=== PATIENT | male | born 1960 | race Caucasian/White ===

== ENCOUNTER 2017-08-05 06:24 | Inpatient (IN) | payer BC ==
[~2017-08-05] VITALS: Ht 175.3 cm; Wt 96.3 kg
[~2017-08-05 06:24] MED LIST: APIXABAN 2.5 MG TAB PO SCH; FEXO1TAB46 PO; METOPROLOL SUCC 25MG EXT REL TAB PO SCH
[2017-08-05] MEDS ORDERED: SODIUM CHLORIDE 0.9% 1000ML 500 ML IV STA (06:45)
--- NOTE | 2017-08-05 06:59 | EMERGENCY ROOM VISIT NOTE ---
History Report prepared by Devyn: Danielle Schuster Under the Supervision of: Dr. Kris Macario M.D. First contact with patient: 06:38 Chief Complaint: SYNCOPE (NEAR SYNCOPE) Stated Complaint: FAINTED History of Present Illness The patient is a 57 year old male who presents to the Emergency Room with complaints of an episode of syncope occurring about an hour ago. The patient states that he got up to use the restroom and while standing to wash his hands he lost consciousness. He reports falling to the ground and hitting his head on the bathroom door. Prior to the episode of syncope, the patient felt lightheaded and dizzy. After the episode, the patient was sweating and still felt lightheaded. Presently, the patient feels fine and denies any leg swelling or headache. He denies any heart racing, shortness of breath or chest pain during the episode. The patient reports feeling normal last night besides a sore throat. He states he took airborne last night. He reports drinking a couple liquor based alcoholic drinks last night which is not normal for him. The patient states he felt normal over the past couple days and denies any recent changes to his medications. The patient previously had an episode of syncope occurring in 2011 and was found to have a bleeding ulcer. He denies any recent black or bloody stools. The patient denies any history of heart attack or previous history of atrial fibrillation. The patient has a history of high blood pressure, a heart murmur, and high cholesterol . The patient reports taking his daily medications this morning. Source of History: patient Onset: an hour ago Position: other (generalized) Quality: other (syncope) Timing: other (episode) Associated Symptoms: No headache, No chest pain, No SOB Review of Systems See HPI for pertinent positives & negatives. A total of 10 systems reviewed and were otherwise negative. Past Medical & Surgical Medical Problems: (1) Acute duodenal ulcer (2) Acute myocardial infarction (3) Dyslipidemia (4) Helicobacter pylori gastrointestinal tract infection (5) s/p arthroscopic surgery left knee (6) s/p cardiac cath (7) s/p vagotomy / antrectomy / gastrojejunostomy Social History Smoking Status: Never Smoker Alcohol Use: occasionally Marital Status: Occupation Status: employed Current/Historical Medications Scheduled Amlodipine (Norvasc), 10 MG PO DAILY Atorvastatin (Lipitor), 20 MG PO DAILY Fluticasone Propionate (Nasal) (Allergy Nasal [place] 24 Ho), 2 SPRAYS OMKAR DAILY Hydrochlorothiazide (Hctz), 25 MG PO DAILY Montelukast Sodium (Singulair), 10 MG PO DAILY Pantoprazole (Protonix), 40 MG PO DAILY Allergies Coded Allergies: No Known Allergies (Verified , 08/05/17) Physical Exam Vital Signs Date Time Temp Pulse Resp B/P (MAP) Pulse Ox O2 Delivery O2 Flow Rate FiO2 08/05/17 08:13 78 19 96 08/05/17 08:02 138/109 08/05/17 07:43 76 15 95 08/05/17 07:31 141/92 08/05/17 07:13 86 25 97 08/05/17 07:08 90 117/97 98 08/05/17 07:06 147/102 08/05/17 07:05 92 131/97 147/102 117/97 08/05/17 07:01 137/104 08/05/17 06:54 85 23 99 08/05/17 06:49 91 08/05/17 06:43 167/109 08/05/17 06:28 36.3 85 18 143/98 97 Room Air Physical Exam GENERAL: Patient is in no acute distress. HEENT: No acute trauma, normocephalic atraumatic, mucous membranes moist, no nasal congestion, no scleral icterus. NECK: No stridor, no adenopathy, no meningismus, trachea is midline. LUNGS: Clear to auscultation bilaterally, no wheeze, no rhonchi, breath sounds equal. HEART: Irregular, with a subtle systolic murmur, normal rate. ABDOMEN: Soft, nontender, bowel sounds positive, no hernias, no peritonitis. EXTREMITIES: No cyanosis or edema, full range of motion of all the joints without pain or difficulty, no signs for acute trauma. NEUROLOGIC: Oriented x 3, no acute motor or sensory deficits, no focal weakness. SKIN: No rash, no jaundice, no diaphoresis. Medical Decision & Procedures ER Provider Diagnostic Interpretation: Radiology results as stated below per my review and radiologist interpretation: CHEST ONE VIEW PORTABLE FINDINGS: Atherosclerosis of the aortic arch. Cardiac silhouette normal in size. Scattered calcified granulomas suggested. Mediastinal calcified lymph lymph node may also be present. Lungs and pleural spaces otherwise clear. Degenerative changes of the thoracic spine. Upper abdomen normal. IMPRESSION: 1. No acute cardiopulmonary disease. Electronically signed by: Christos Hernandez M.D. Laboratory Results 08/05/17 07:00 Red Blood Count 5.68, Mean Corpuscular Volume 81.2, Mean Corpuscular Hemoglobin 29.2, Mean Corpuscular Hemoglobin Concent 36.0, Mean Platelet Volume 9.0, Neutrophils (%) (Auto) 68.6, Lymphocytes (%) (Auto) 18.7, Monocytes (%) (Auto) 6.5, Eosinophils (%) (Auto) 5.6, Basophils (%) (Auto) 0.5, Neutrophils # (Auto) 5.38, Lymphocytes # (Auto) 1.47, Monocytes # (Auto) 0.51, Eosinophils # (Auto) 0.44, Basophils # (Auto) 0.04 08/05/17 07:00 Test 08/05/17 07:00 White Blood Count 7.85 K/uL (4.8-10.8) Red Blood Count 5.68 M/uL (4.7-6.1) Hemoglobin 16.6 g/dL (14.0-18.0) Hematocrit 46.1 % (42-52) Mean Corpuscular Volume 81.2 fL (80-100) Mean Corpuscular Hemoglobin 29.2 pg (25-34) Mean Corpuscular Hemoglobin Concent 36.0 g/dl (32-36) Platelet Count 160 K/uL (130-400) Mean Platelet Volume 9.0 fL (7.4-10.4) Neutrophils (%) (Auto) 68.6 % Lymphocytes (%) (Auto) 18.7 % Monocytes (%) (Auto) 6.5 % Eosinophils (%) (Auto) 5.6 % Basophils (%) (Auto) 0.5 % Neutrophils # (Auto) 5.38 K/uL (1.4-6.5) Lymphocytes # (Auto) 1.47 K/uL (1.2-3.4) Monocytes # (Auto) 0.51 K/uL (0.11-0.59) Eosinophils # (Auto) 0.44 K/uL (0-0.5) Basophils # (Auto) 0.04 K/uL (0-0.2) RDW Standard Deviation 37.5 fL (36.4-46.3) RDW Coefficient of Variation 12.7 % (11.5-14.5) Immature Granulocyte % (Auto) 0.1 % Immature Granulocyte # (Auto) 0.01 K/uL (0.00-0.02) Prothrombin Time 10.6 SECONDS (9.0-12.0) Prothromb Time International Ratio 1.0 (0.9-1.1) Activated Partial Thromboplast Time 26.4 SECONDS (21.0-31.0) Partial Thromboplastin Ratio 1.0 Anion Gap 5.0 mmol/L (3-11) Est Creatinine Clear Calc Drug Dose 79.5 ml/min Estimated GFR () 78.6 Estimated GFR (Non- 67.8 BUN/Creatinine Ratio 11.7 (10-20) Calcium Level 9.2 mg/dl (8.5-10.1) Magnesium Level 2.1 mg/dl (1.8-2.4) Total Bilirubin 0.6 mg/dl (0.2-1) Aspartate Amino Transf (AST/SGOT) 25 U/L (15-37) Alanine Aminotransferase (ALT/SGPT) 33 U/L (12-78) Alkaline Phosphatase 86 U/L (45-117) Troponin I < 0.015 ng/ml (0-0.045) Total Protein 8.2 gm/dl (6.4-8.2) Albumin 4.1 gm/dl (3.4-5.0) Globulin 4.1 gm/dl (2.5-4.0) Albumin/Globulin Ratio 1.0 (0.9-2) Thyroid Stimulating Hormone (TSH) 2.240 uIu/ml (0.300-4.500) POC Troponin: 0.12. Laboratory results reviewed by me. Medications Administered Medications (Trade) Dose Ordered Sig/Luis Fernando Route Start Time Stop Time Status Last Admin Dose Admin Sodium Chloride 500 ml @ 999 mls/hr Q31M STAT IV 08/05/17 06:45 08/05/17 07:15 DC 08/05/17 07:09 999 MLS/HR Aspirin (Aspirin Chew) 324 mg NOW STAT PO 08/05/17 07:37 08/05/17 07:38 DC 08/05/17 08:00 324 MG Potassium Chloride (Klor-Con M10) 20 meq NOW STAT PO 08/05/17 07:37 08/05/17 07:38 DC 08/05/17 07:59 20 MEQ Potassium Chloride 10 meq/ Prmx 100 ml @ 100 mls/hr TODAY@0750 ONCE IV 08/05/17 07:50 08/05/17 08:49 08/05/17 08:07 100 MLS/HR ECG Indication: syncope Rate (beats per minute): 85 Rhythm: atrial fibrillation Findings: no acute ischemic change, no ectopy Comparison ECG Date: 04/16/12 Change: A Fib is new. ED Course 0639: The patient was evaluated in room B10. A complete history and physical exam was performed. 0645: Ordered Sodium Chloride 500 ml @ 999 mls/hr IV. 0728: Orthostatic vital signs were positive. 0739: I updated the patient on his test results. The patient's potassium levels are low. 0750: Ordered Potassium Chloride 10 meq/Prmx 100 ml @ 100 mls/hr IV. 0804: Discussed the patient's case with Dr. Aly-Cardiology. He agreed that said the patient should stay in the hospital but states that nothing more emergent needs to be done. 0808: Discussed the patient's case Dr. [place] The patient will be evaluated for further management. 0812: I updated the patient on the treatment plan. He is agreeable to a stay in the hospital. Medical Decision Differential diagnoses include: atrial fibrillation, dysrhythmia, SVT, dehydration, anemia, electrolyte imbalance, OR, orthostasis. There is no leukocytosis or concerning anemia. Potassium was slightly low at around 3, no kidney failure. No hepatitis or coagulopathy. EKG shows A. fib which is rate controlled, no acute ischemia. Cardiac POC troponin is mildly elevated-this could indicate cardiac injury or strain. Of note, the regular laboratory troponin was resulted as normal. Chest film does not show pneumonia or CHF. Orthostatic vital signs were slightly positive. The patient received IV saline. He was given oral and IV potassium. The patient is comfortable and in no distress. Because of the mild troponin elevation, he received oral aspirin. Given his findings, a hospital stay is warranted. I spoke with the patient and case management. The on-call hospitalist was consulted. I did also consult the reset merchandiser on-call and we discussed the case. No additional recommendations were made by the reset merchandiser. Medication Reconcilliation Current Medication List: was personally reviewed by me Blood Pressure Screening Patient's blood pressure: Elevated blood pressure Blood pressure disposition: Referred to PCP (evaluated by hospitalist) Consults Time Called: 801 Consulting Physician: Dr. Aly-Cardiology Returned Call: 08 Discussed the patient's case. He agreed that said the patient should stay in the hospital but states that nothing more emergent needs to be done. Additional Consults: Time Called: 805 Consulted Physician: Dr. [place]ado[place] Returned Call: 08 Additional Comments: Discussed the patient's case. The patient will be evaluated for further management. Impression Primary Impression: Syncope Additional Impressions: New onset a-fib Elevated troponin Scribe Attestation The scribe's documentation has been prepared under my direction and personally reviewed by me in its entirety. I confirm that the note above accurately reflects all work, treatment, procedures, and medical decision making performed by me. Departure Information Dispostion Being Evaluated By Hospitalist Referrals Jorgito Montes Jr,D.O. (PCP) Patient Instructions My [facility] Problem Qualifiers
[2017-08-05 07:11] LABS: BASO % 0.5 %; BASO ABS # 0.04 K/uL (0-0.2); COMPLETE YES; EOS % 5.6 %; HEMATOCRIT 46.1 % (42-52); IG% 0.1 %; LYMPH % 18.7 %; LYMPH ABS # 1.47 K/uL (1.2-3.4); MEAN CELL VOLUME 81.2 fL (80-100); MEAN CORPUSCULAR HEMOGLOBIN 29.2 pg (25-34); MONO % 6.5 %; NEUT % 68.6 %; PLATELET COUNT 160 K/uL (130-400); RED BLOOD COUNT 5.68 M/uL (4.7-6.1); WHITE BLOOD COUNT 7.85 K/uL (4.8-10.8)
[2017-08-05] MEDS ORDERED: HYDR25TA4 PO (07:16)
[2017-08-05] MEDS ORDERED: PANT40TA PO (07:16)
[2017-08-05] MEDS ORDERED: MONT1TAB3 PO (07:17)
[2017-08-05] MEDS ORDERED: FLUT50SP45 NAE (07:17)
[2017-08-05] MEDS ORDERED: AMLO-114 PO (07:17)
[2017-08-05] MEDS ORDERED: ATOR-22 PO (07:17)
[2017-08-05 07:20] LABS: PROTHROMBIN TIME (PATIENT) 10.6 SECONDS (9.0-12.0)
--- NOTE | 2017-08-05 07:21 | DIAGNOSTIC IMAGING REPORT ---
CHEST ONE VIEW PORTABLE CLINICAL HISTORY: 57 years-old Male presenting with EVALUATE ALTERED MENTAL STATUS/WEAKNESS. TECHNIQUE: Portable upright AP view of the chest was obtained. COMPARISON: 01/08/[address] from 10/02/2012. FINDINGS: Atherosclerosis of the aortic arch. Cardiac silhouette normal in size. Scattered calcified granulomas suggested. Mediastinal calcified lymph lymph node may also be present. Lungs and pleural spaces otherwise clear. Degenerative changes of the thoracic spine. Upper abdomen normal. IMPRESSION: 1. No acute cardiopulmonary disease. Electronically signed by: Christos Hernandez M.D. 08/05/2017 7:20 AM Dictated Date/Time: 08/05/2017 7:18 AM
[2017-08-05 07:29] LABS: BUN/CREATININE RATIO 11.7 (10-20); CALCIUM 9.2 mg/dl (8.5-10.1); CREATININE 1.17 mg/dl (0.60-1.40); POTASSIUM 3.1 mmol/L (3.5-5.1)
[2017-08-05] MEDS ORDERED: POTASSIUM CHLORIDE 10 MEQ TABCR PO STA (07:37)
[2017-08-05] MEDS ORDERED: POTASSIUM CHLORIDE 10 MEQ / 100ML WTR IV STA (07:37)
[2017-08-05] MEDS ORDERED: ASPIRIN 81 MG CHEW PO STA (07:37)
[2017-08-05 07:40] LABS: THYROID STIMULATING HORMONE 2.24 uIu/ml (0.300-4.500)
[2017-08-05] MEDS ORDERED: POTASSIUM CHLR 10MEQ / WTR IV ONE (07:50)
[2017-08-05 08:20] VITALS: O2SAT 96; Ht 175.3 cm; Wt 96.3 kg
--- NOTE | 2017-08-05 08:28 | History and Physical ---
History & Physical Date & Time of Service: Aug 05, 2017 at 08:22 Chief Complaint: Fainted Primary Care Physician: Jorgito Montes Jr,D.O. History of Present Illness Source: patient, family This is a 57 yo M with PMHx of Gi bleed secondary to duodenal ulcer with h.pylori infection, HTN, HLD, s/p cardiac cath in 2007 for possible NSTEMI, who presented this morning to the ER after syncopal episode. Pt woke up this morning and walked to the bathroom, at that point felt lightheaded while urinating, but then proceeded to washing his hands. At that point the patient felt more lightheaded and passed out. His was in the bedroom but did not witness the event. He denies hitting his head or sustaining any other major injuries. He woke up within seconds per . Pt reports he had a similar episode with passing out in 1997 when he was diagnosed with a GI bleed secondary to duodenal and jejunal ulcerations, at that time he saw Dr. Donaldson. He denies any abdominal pain, cramping, changes in diet, or changes in stool. He has had a routine colonoscopy within the past [address] Thompson. Last evening had two gin and tonics and reports also had several cups of coffee yesterday. He denies any other complaints at this time. Here in the ER the patient is found to be in new onset Afib which is rate controlled in the 90s. Potassium slightly low at 3.1 and was replaced. Past Medical/Surgical History Medical Problems: (1) Acute duodenal ulcer Permanent Comment: 1987 H pylori positive. Status: Resolved (2) Acute myocardial infarction Permanent Comment: non-STEMI 01/07/08 echo showed normal LV wall motion cardiac cath 01/08/08 showed diffuse nonocclusive disease Status: Resolved (3) Dyslipidemia Status: Chronic (4) Helicobacter pylori gastrointestinal tract infection Permanent Comment: duodenal ulcer 1987 Status: Resolved (5) s/p arthroscopic surgery left knee Permanent Comment: 10/13/10 Status: Resolved (6) s/p cardiac cath Permanent Comment: Dr. Delcid [facility] 01/08/08 left main- no stenosis LAD- multiple lesions, 20-30% circ- 30% prox stenosis RCA- mid 20% stenosis Status: Resolved (7) s/p vagotomy / antrectomy / gastrojejunostomy Permanent Comment: Dr. Ethan Blackwell [facility] 1987 bleeding duodenal ulcer with duodenal stenosis Status: Resolved Family History Patient reports no known family medical history. Social History Smoking Status: Never Smoker Smokeless Tobacco Use: No Alcohol Use: occasionally Drug Use: none Marital Status: Housing status: lives with family Occupational Status: employed Immunizations History of Influenza Vaccine: Yes Influenza Vaccine Date: Apr 24, 2007 History of Tetanus Vaccine?: Yes History of Pneumococcal: No History of Hepatitis B Vaccine: Unknown Multi-Drug Resistant Organisms History of MDRO: No Allergies Coded Allergies: No Known Allergies (Verified , 08/05/17) Home Medications Scheduled Amlodipine (Norvasc), 10 MG PO DAILY Apixaban (Eliquis), 5 MG PO BID Atorvastatin (Lipitor), 20 MG PO DAILY Fluticasone Propionate (Nasal) (Allergy Nasal [place] 24 Ho), 2 SPRAYS OMKAR DAILY Metoprolol Succinate (Metoprolol Succinate ER), 25 MG PO HS Montelukast Sodium (Singulair), 10 MG PO DAILY Pantoprazole (Protonix), 40 MG PO DAILY Review of Systems Constitutional: No fever, No chills, No sweats, No weight loss, No fatigue Eyes: No redness, No diplopia ENT: No sore throat, No trouble swallowing Respiratory: No shortness of breath, No dyspnea on exertion, No dyspnea at rest Cardiovascular: No chest pain, No orthopnea, No edema, No palpitations Abdomen: No pain, No nausea, No vomiting, No diarrhea, No constipation, No GI bleeding Musculoskeletal: No joint pain, No swelling, No calf pain Genitourinary - Male: No hematuria, No dysuria Neurologic: + problem reported (see HPI), No memory loss, No numbness/tingling Endocrine: No fatigue Integumentary: No rash, No itch Physical Exam Vital Signs Date Time Temp Pulse Resp B/P (MAP) Pulse Ox O2 Delivery O2 Flow Rate FiO2 08/05/17 08:13 78 19 96 08/05/17 08:02 138/109 08/05/17 07:43 76 15 95 08/05/17 07:31 141/92 08/05/17 07:13 86 25 97 08/05/17 07:08 90 117/97 98 08/05/17 07:06 147/102 08/05/17 07:05 92 131/97 147/102 117/97 08/05/17 07:01 137/104 08/05/17 06:54 85 23 99 08/05/17 06:49 91 08/05/17 06:43 167/109 08/05/17 06:28 36.3 85 18 143/98 97 Room Air General Appearance: WD/WN, no apparent distress Head: normocephalic, atraumatic Eyes: PERRL ENT: normal ENT inspection, hearing grossly normal, pharynx normal Neck: supple, no JVD Respiratory/Chest: chest non-tender, lungs clear, no respiratory distress, no accessory muscle use Cardiovascular: no JVD, + irregularly irregular (rate controlled) Abdomen/GI: normal bowel sounds, non tender, soft Back: normal inspection Extremities/Musculoskelatal: no calf tenderness, no pedal edema Neurologic/Psych: alert, normal mood/affect, oriented x 3 Skin: normal color, warm/dry Diagnostics Laboratory Results Results Past 24 Hours Test 08/05/17 07:00 Range/Units White Blood Count 7.85 4.8-10.8 K/uL Red Blood Count 5.68 4.7-6.1 M/uL Hemoglobin 16.6 14.0-18.0 g/dL Hematocrit 46.1 42-52 % Mean Corpuscular Volume 81.2 80-100 fL Mean Corpuscular Hemoglobin 29.2 25-34 pg Mean Corpuscular Hemoglobin Concent 36.0 32-36 g/dl Platelet Count 160 130-400 K/uL Mean Platelet Volume 9.0 7.4-10.4 fL Neutrophils (%) (Auto) 68.6 % Lymphocytes (%) (Auto) 18.7 % Monocytes (%) (Auto) 6.5 % Eosinophils (%) (Auto) 5.6 % Basophils (%) (Auto) 0.5 % Neutrophils # (Auto) 5.38 1.4-6.5 K/uL Lymphocytes # (Auto) 1.47 1.2-3.4 K/uL Monocytes # (Auto) 0.51 0.11-0.59 K/uL Eosinophils # (Auto) 0.44 0-0.5 K/uL Basophils # (Auto) 0.04 0-0.2 K/uL RDW Standard Deviation 37.5 36.4-46.3 fL RDW Coefficient of Variation 12.7 11.5-14.5 % Immature Granulocyte % (Auto) 0.1 % Immature Granulocyte # (Auto) 0.01 0.00-0.02 K/uL Prothrombin Time 10.6 9.0-12.0 SECONDS Prothromb Time International Ratio 1.0 0.9-1.1 Activated Partial Thromboplast Time 26.4 21.0-31.0 SECONDS Partial Thromboplastin Ratio 1.0 Sodium Level 135 136-145 mmol/L Potassium Level 3.1 3.5-5.1 mmol/L Chloride Level 100 98-107 mmol/L Carbon Dioxide Level 30 21-32 mmol/L Anion Gap 5.0 3-11 mmol/L Blood Urea Nitrogen 14 7-18 mg/dl Creatinine 1.17 0.60-1.40 mg/dl Est Creatinine Clear Calc Drug Dose 79.5 ml/min Estimated GFR () 78.6 Estimated GFR (Non- 67.8 BUN/Creatinine Ratio 11.7 10-20 Random Glucose 101 70-99 mg/dl Calcium Level 9.2 8.5-10.1 mg/dl Magnesium Level 2.1 1.8-2.4 mg/dl Total Bilirubin 0.6 0.2-1 mg/dl Aspartate Amino Transf (AST/SGOT) 25 15-37 U/L Alanine Aminotransferase (ALT/SGPT) 33 12-78 U/L Alkaline Phosphatase 86 45-117 U/L Troponin I < 0.015 0-0.045 ng/ml Total Protein 8.2 6.4-8.2 gm/dl Albumin 4.1 3.4-5.0 gm/dl Globulin 4.1 2.5-4.0 gm/dl Albumin/Globulin Ratio 1.0 0.9-2 Thyroid Stimulating Hormone (TSH) 2.240 0.300-4.500 uIu/ml Diagnostic Radiology [~ rep ct add3]] CHEST ONE VIEW PORTABLE CLINICAL HISTORY: 57 years-old Male presenting with EVALUATE ALTERED MENTAL STATUS/WEAKNESS. TECHNIQUE: Portable upright AP view of the chest was obtained. COMPARISON: 01/08/[address] from 10/02/2012. FINDINGS: Atherosclerosis of the aortic arch. Cardiac silhouette normal in size. Scattered calcified granulomas suggested. Mediastinal calcified lymph lymph node may also be present. Lungs and pleural spaces otherwise clear. Degenerative changes of the thoracic spine. Upper abdomen normal. IMPRESSION: 1. No acute cardiopulmonary disease. Electronically signed by: Christos Hernandez M.D. 08/05/2017 7:20 AM Dictated Date/Time: 08/05/2017 7:18 AM The status of this report is Signed. EKG Atrial fibrillation with a competing junctional pacemaker Abnormal ECG Vent. rate 85 BPM AK interval * ms QRS duration 82 ms QT/QTc 396/471 ms P-R-T axes * 86 30 Impression Assessment and Plan (1) New onset a-fib (2) Syncope Assessment & Plan: - Admit to tele - New onset atrial fibrillation likely the cause of patients syncopal episode - Checking Echo - Initial point of care troponin was positive, but serum troponin was negative - - will trend x 2 more to rule out. Pt has a hx of NSTEMI in 2007 and had cardiac cath by Dr. Delcid - Pt took morning antihypertensives including hctz 25 mg, norvasc 10 mg. - Cardiology consulted - CHADs vasc score is a 1, received ASA 325 mg in the ER, continue on ASA 81 mg QAM - Will start on metoprolol tartrate 12.5 mg BID for beta blockade - Pt currently asymptomatic and rate controlled - BP stable since presenting to the ER - Administered 1 g IV mag in the ER prior to results but Mag is stable. - Plan was discussed with the patients and daughter at bedside. (3) HTN (hypertension) Assessment & Plan: - For now continue HCTZ and norvasc (4) HLD (hyperlipidemia) Assessment & Plan: - Continue atorvastatin 20 mg daily (5) Gastrointestinal hemorrhage Assessment & Plan: - Continue protonix - Caution with anticoagulation, but likely with new onset afib the benefit outweighs the risk - Resolved (6) Helicobacter pylori gastrointestinal tract infection Assessment & Plan: - Resolved (7) Hypokalemia Assessment & Plan: - Replaced with IV - Trend am PRP Level of Care Telemetry Resuscitation Status FULL RESUSCITATION VTE Prophylaxis VTE Risk Assessment Done? Y/N: Yes Risk Level: Low Given or contraindicated: Unfractionated heparin SQ Note Supervising Note Dr. Chiang I performed a history and physical examination on the patient. I reviewed above note and agree with what is written. During my face to face interaction with the patient, I updated the patient on the plan and answered all of the patient's questions. My exam is below: General Appearance: WD/WN, no apparent distress Neck: supple, no JVD, trachea midline Respiratory/Chest: lungs clear, normal breath sounds, no respiratory distress, no accessory muscle use Cardiovascular: irregularly irregular Abdomen: normal bowel sounds, non tender, soft Extremities: no pedal edema, no calf tenderness, Neurologic/Psychiatric: alert, oriented x 3 Skin: normal color, warm/dry
[2017-08-05] MEDS ORDERED: SODIUM CHLORIDE 0.9% 1000ML 1,000 ML IV SCH (08:46)
[2017-08-05 08:51] VITALS: O2SAT 96
[2017-08-05] MEDS ORDERED: FLUTICASONE PROPIONATE NA SPR 16 GM BTL NAE SCH (09:00)
[2017-08-05] MEDS ORDERED: PANTOprazole SOD 40 MG TAB PO SCH (09:00)
[2017-08-05] MEDS ORDERED: MONTELUKAST SOD 10 MG TAB PO SCH (09:00)
[2017-08-05] MEDS ORDERED: ATORVASTATIN 20 MG TAB PO SCH (09:00)
[2017-08-05] MEDS ORDERED: HYDROCHLOROTHIAZIDE 25 MG TAB PO SCH (09:00)
[2017-08-05] MEDS ORDERED: POLYETHYLENE (MIRALAX) 17 GM PACK PO PRN (09:00)
[2017-08-05] MEDS ORDERED: ACETAMINOPHEN 325 MG TAB PO PRN (09:00)
[2017-08-05] MEDS ORDERED: ONDANSETRON INJ 2 MG/ML 2 ML VIAL IV PRN (09:00)
[2017-08-05] MEDS ORDERED: AMLODIPINE BESYLATE 5 MG TAB PO SCH (09:00)
[2017-08-05 09:25] VITALS: BP 128/89; PULSE 91; TEMP 36.5; O2SAT 95
[2017-08-05] MEDS ORDERED: MAGNESIUM SULFATE 1GM / D5W 1 GM in PREMIXED IN D5W 100 ML IV ONE (10:00)
[2017-08-05] MEDS ORDERED: METOPROLOL TARTRATE 25 MG TAB PO SCH (10:45)
--- NOTE | 2017-08-05 12:02 | ECHOCARDIOGRAM REPORT ---
*NOTICE TO RECEIVING REPUBLICAN AGENCY This information is strictly Confidential and protected under [place] law. [place] law prohibits you from making any further disclosure of this information unless further disclosure is expressly permitted by the written consent of the person to whom it pertains or is authorized by law. A general authorization for the release of medical or other information is not sufficient for this purpose. Hospital accepts no responsibility if the information is made available to any other person, INCLUDING THE PATIENT. Interpretation Summary * Name: MANUEL GUTIERREZ Study Date: 08/05/2017 10:08 AM BP: 128/89 mmHg * Patient Location: C.2E\S\E212\S\1 HR: 91 * : 1960 (M/d/yyyy) Gender: Male Height: 69 in * Age: 57 yrs Ethnicity: CA Weight: 221 lb * Ordering Physician: Nyla Thomas * Referring Physician: Self, Referred * Performed By: Martha Weber RCS * * Reason For Study: A-FIB * BSA: 2.2 m2 * -- Conclusions -- * The left ventricle is normal in size. * There is mild concentric left ventricular hypertrophy. * Left ventricular systolic function is normal. * LVEF 65% * The left ventricular wall motion is normal. * The right ventricle is normal in size and function. * Calcification along the coaptation of the RCC and LCC of the AoV. A functional bicuspid AoV can not be excluded * No AR * The left atrium is moderately dilated. Procedure Details * A complete two-dimensional transthoracic echocardiogram was performed (2D, M-mode, Doppler and color flow Doppler). Left Ventricle * The left ventricle is normal in size. * There is mild concentric left ventricular hypertrophy. * Left ventricular systolic function is normal. * LVEF 65% * The left ventricular wall motion is normal. Right Ventricle * The right ventricle is normal in size and function. Atria * The left atrium is moderately dilated. * Right atrial size is normal. Mitral Valve * The mitral valve leaflets appear thickened, but open well. * There is no mitral regurgitation noted. Tricuspid Valve * The tricuspid valve is not well visualized, but is grossly normal. * There is trace tricuspid regurgitation. Aortic Valve * Calcification along the coaptation of the RCC and LCC of the AoV. A functional bicuspid AoV can not be excluded No AR Pulmonic Valve * The pulmonic valve is not well seen, but is grossly normal. * Mild pulmonic valvular regurgitation. Great Vessels * The aortic root is normal size. Pericardium/Pleural * There is no pericardial effusion. Great Vessels * IVC not well seen MMode 2D Measurements and Calculations IVSd 1.7 cm IVSs 1.6 cm LVIDd 4.7 cm LVIDs 3.5 cm LVPWd 1.2 cm LVPWs 1.7 cm IVS/LVPW 1.4 FS 25.5 % EDV(Teich) 102.3 ml ESV(Teich) 50.9 ml EF(Teich) 50.3 % EDV(cubed) 103.7 ml ESV(cubed) 42.9 ml EF(cubed) 58.7 % % IVS thick -4.51 % % LVPW thick 42.0 % LV mass(C)d 280.8 grams LV mass(C)dI 130.3 grams/m\S\2 LV mass(C)s 231.5 grams LV mass(C)sI 107.4 grams/m\S\2 SV(Teich) 51.4 ml SI(Teich) 23.9 ml/m\S\2 SV(cubed) 60.8 ml SI(cubed) 28.2 ml/m\S\2 Ao root diam 3.4 cm Ao root area 8.9 cm\S\2 LA dimension 4.7 cm LA/Ao 1.4 LVOT diam 2.0 cm LVOT area 3.2 cm\S\2 Doppler Measurements and Calculations MV E max walker 79.8 cm/sec MV P1/2t max walker 98.4 cm/sec MV P1/2t 58.5 msec MVA(P1/2t) 3.8 cm\S\2 MV dec slope 492.5 cm/sec\S\2 MV dec time 0.18 sec Ao V2 max 143.2 cm/sec Ao max PG 8.2 mmHg Ao max PG (full) 4.5 mmHg SOLEDAD(V,A) 2.1 cm\S\2 SOLEDAD(V,D) 2.1 cm\S\2 AI max walker 280.4 cm/sec AI max PG 31.4 mmHg AI dec slope 131.0 cm/sec\S\2 AI P1/2t 627.1 msec LV V1 max PG 3.7 mmHg LV V1 max 96.0 cm/sec PA V2 max 78.5 cm/sec PA max PG 2.5 mmHg PI max walker 184.6 cm/sec PI max PG 13.6 mmHg PI dec slope 143.4 cm/sec\S\2 PI P1/2t 377.2 msec
[2017-08-05] MEDS ORDERED: APIXABAN 2.5 MG TAB PO SCH (12:15)
[2017-08-05 12:27] VITALS: BP 124/94; PULSE 82; TEMP 36.4; O2SAT 98
[2017-08-05] MEDS ORDERED: HEPARIN SOD 5000 UNIT/0.5 ML CARP SQ SCH (14:00)
--- NOTE | 2017-08-05 14:34 | CARDIOLOGY CONSULTATION ---
DATE OF CONSULTATION: 08/05/2017 REQUESTING: Narciso Chiang MD MINE TECHNICIAN: Maximiliano Aly DO, [facility] Cardiology. REASON FOR CONSULTATION: Syncope, atrial fibrillation of unknown duration. It was a pleasure to see Shailesh today in consultation with regards to his new onset of atrial fibrillation of unknown duration and a syncopal episode. He notes he saw his family doctor who is Dr. Montes within the last couple weeks, at that visit, no one mentioned that his heart rate was irregular. 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 He notes yesterday he had a fair amount of coffee, he also had some alcoholic beverages last evening and he notes he did not drink as much water as usual. 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 He walked to the bathroom, he was urinating, he started to get lightheaded and dizzy. He then went to the sink to wash his hands and the next thing he knows he had a syncopal episode. He describes the dizziness as wooziness in the head. There was no vertigo. He had no palpitations associated with it. He had brief loss of consciousness which lasted a couple of seconds, when he came to, he remembered all the events that occurred prior to passing out. When he awoke, there was no loss of bowel or bladder function and he was able to carry on a conversation. His who was with him notes that the urine in the toilet was very concentrated. He has never had a previous history of syncope nor does he have a history of atrial fibrillation. He denies any lower extremity edema, symptoms of claudication, bleeding, bruising, dark stools, black stools, fevers, chills, sweats, cough, productive sputum. His appetite is stable. He is trying to lose weight. The rest of review of systems otherwise negative. PAST MEDICAL HISTORY: 1. New onset atrial fibrillation of undetermined duration. 2. Syncope, likely related to orthostatic hypotension and dehydration. 3. History of duodenal ulcer in 1987. 4. Hyperlipidemia. 5. Cardiac catheterization - December 2007 with 20-30% LAD lesion, 30% proximal circumflex lesion and a 20% mid RCA lesion with mild nonobstructive coronary artery disease. 6. Arthroscopic surgery of his left knee - October 2010. 7. Vagotomy, antrectomy and gastrojejunostomy in 1987. 8. Seasonal allergies. 9. Hypertension. FAMILY HISTORY: Positive for pulmonary fibrosis including 2 siblings. His dad had a heart attack in his mid to late 50s. SOCIAL HISTORY: Lifetime nonsmoker, occasionally drinks alcohol. He is . 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 ALLERGIES: No known drug allergies. PHYSICAL EXAMINATION: GENERAL: He is awake, alert, oriented x3. He is in no acute distress. He is a well-appearing male who looks younger than his stated age. VITAL SIGNS: His heart rate is 91. His respirations are 16, his blood pressure 128/89. Sats 95% on room air. HEENT: AND NECK: 2+ carotid upstrokes. No evidence of carotid bruits. Jugular venous pressure appeared normal. Sclerae is anicteric. Hearing is normal. LUNGS: Clear to auscultation bilaterally. No rales, rhonchi or wheezing. HEART: Irregular rate and rhythm. No appreciable murmurs, rubs or gallops. ABDOMEN: Soft, nontender, nondistended, positive bowel sounds. EXTREMITIES: No clubbing, cyanosis or edema. PSYCHIATRIC: Affect appeared appropriate. NEUROLOGIC: He is awake, alert and oriented x3. DIAGNOSTIC STUDIES: Chest x-ray is normal. His point of care troponin was described as abnormal in the ER, his lab troponin is normal. His TSH is 2.24. Sodium 135, potassium 3.1, BUN 14, creatinine 1.17. His coags are normal. His hemoglobin 16.6 with a platelet count of 160. EKG today - atrial fibrillation with a controlled ventricular response at 85 beats per minute, no acute ST-T changes. IMPRESSION: 1. Syncopal episode secondary to orthostatic hypotension. 2. Hyponatremia and hypokalemia secondary to hydrochlorothiazide. 3. History of hypertension. 4. New onset atrial fibrillation of undetermined duration, which appears to be asymptomatic with a CHADS2-VASc score including hypertension and given his known coronary disease a score of 2. As I discussed with Shailesh and his family in detail, his echocardiogram reveals normal biventricular size and function, there were no regional wall motion abnormalities, his ejection fraction is 65%, he does have moderate left atrial enlargement, likely secondary to longstanding hypertension. His syncopal episode sounds like it is all related to orthostatic symptoms. He had decreased oral intake yesterday, consumed alcohol last night and significant amount of caffeine, which are all diuretics. I made the following recommendations: 1. Stop his hydrochlorothiazide, which will improve his sodium and his potassium. 2. Replete his potassium. 3. Add Toprol-XL 25 mg at bedtime to control his heart rate. 4. Add apixaban 5 mg b.i.d. with close monitoring for any GI bleeding given his history and he should remain on pantoprazole. As I discussed with him if he is still in atrial fibrillation after 3 weeks of anticoagulation, we can consider cardioversion at that point to try to restore sinus rhythm. It appears he has not had any symptoms of atrial fibrillation over the last couple of weeks. 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 From my standpoint, he can be discharged home. All this was discussed in the family. Will arrange for a nurse visit in the office this week to check his heart rate and his blood pressure. Thank you for allowing us to participate in his care. ISHMAEL
[2017-08-05] MEDS ORDERED: TPRSR25 PO (14:38)
[2017-08-05] MEDS ORDERED: APIX1TAB3 PO (14:38)
--- NOTE | 2017-08-05 14:40 | Discharge Instructions ---
Discharge Instructions Date of Service Aug 05, 2017. Admission Reason for Admission: New Onset Afib Discharge Discharge Diagnosis / Problem: New onset A. Fib Discharge Goals Goal(s): Decrease discomfort, Improve function Activity Recommendations Activity Limitations: resume your previous activity . Instructions / Follow-Up Instructions / Follow-Up Followup with PCP in 1-2 weeks Followup with cardiology within 1 month. Cardio will call you tomorrow. Please olive picker medicine tomorrow at pharmacy. Current Hospital Diet Patient's current hospital diet: AHA Diet (Heart Healthy) Discharge Diet Recommended Diet: AHA Diet (Heart Healthy) Pending Studies Studies pending at discharge: no Medical Emergencies . Who to Call and When: Medical Emergencies: If at any time you feel your situation is an emergency, please call 911 immediately. . Non-Emergent Contact Non-Emergency issues call your: Primary Care Provider Call Non-Emergent contact if: you have any medication questions . . "Provider Documentation" section prepared by Narciso Chiang. . VTE Core Measure Inpt VTE Proph given/why not?: Unfractionated heparin SQ
[2017-08-05 15:25] VITALS: BP 124/94; PULSE 82; TEMP 36.4; O2SAT 98
[2017-08-05] MEDS ORDERED: METOPROLOL SUCC 25MG EXT REL TAB PO SCH (21:00)
[2017-08-06] MEDS ORDERED: ASPIRIN 81 MG ECTAB PO SCH (09:00)
--- NOTE | 2017-08-14 08:55 | Discharge Summary ---
Discharge Summary Date of Service 2016 Discharge Summary Admission Date: Aug 05, 2017 at 08:51 Discharge Date: Aug 05, 2017 Discharge Disposition: Home Principal Diagnosis: New onset A. Fib Immunizations: Have You Had Influenza Vaccine: Yes Influenza Vaccine Date: Apr 24, 2007 History of Tetanus Vaccine?: Yes History of Pneumococcal: No History of Hepatitis B Vaccine: Unknown Consultations: DATE OF CONSULTATION: 08/05/2017 REQUESTING: Narciso Chiang MD HARDWOOD FALLER: Maximiliano Aly DO, [facility] Cardiology. REASON FOR CONSULTATION: Syncope, atrial fibrillation of unknown duration. It was a pleasure to see Shailesh today in consultation with regards to his new onset of atrial fibrillation of unknown duration and a syncopal episode. He notes he saw his family doctor who is Dr. Montes within the last couple weeks, at that visit, no one mentioned that his heart rate was irregular. 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 He notes yesterday he had a fair amount of coffee, he also had some alcoholic beverages last evening and he notes he did not drink as much water as usual. 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 He walked to the bathroom, he was urinating, he started to get lightheaded and dizzy. He then went to the sink to wash his hands and the next thing he knows he had a syncopal episode. He describes the dizziness as wooziness in the head. There was no vertigo. He had no palpitations associated with it. He had brief loss of consciousness which lasted a couple of seconds, when he came to, he remembered all the events that occurred prior to passing out. When he awoke, there was no loss of bowel or bladder function and he was able to carry on a conversation. His who was with him notes that the urine in the toilet was very concentrated. He has never had a previous history of syncope nor does he have a history of atrial fibrillation. He denies any lower extremity edema, symptoms of claudication, bleeding, bruising, dark stools, black stools, fevers, chills, sweats, cough, productive sputum. His appetite is stable. He is trying to lose weight. The rest of review of systems otherwise negative. PAST MEDICAL HISTORY: 1. New onset atrial fibrillation of undetermined duration. 2. Syncope, likely related to orthostatic hypotension and dehydration. 3. History of duodenal ulcer in 1987. 4. Hyperlipidemia. 5. Cardiac catheterization - December 2007 with 20-30% LAD lesion, 30% proximal circumflex lesion and a 20% mid RCA lesion with mild nonobstructive coronary artery disease. 6. Arthroscopic surgery of his left knee - October 2010. 7. Vagotomy, antrectomy and gastrojejunostomy in 1987. 8. Seasonal allergies. 9. Hypertension. FAMILY HISTORY: Positive for pulmonary fibrosis including 2 siblings. His dad had a heart attack in his mid to late 50s. SOCIAL HISTORY: Lifetime nonsmoker, occasionally drinks alcohol. He is . 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 ALLERGIES: No known drug allergies. PHYSICAL EXAMINATION: GENERAL: He is awake, alert, oriented x3. He is in no acute distress. He is a well-appearing male who looks younger than his stated age. VITAL SIGNS: His heart rate is 91. His respirations are 16, his blood pressure 128/89. Sats 95% on room air. HEENT: AND NECK: 2+ carotid upstrokes. No evidence of carotid bruits. Jugular venous pressure appeared normal. Sclerae is anicteric. Hearing is normal. LUNGS: Clear to auscultation bilaterally. No rales, rhonchi or wheezing. HEART: Irregular rate and rhythm. No appreciable murmurs, rubs or gallops. ABDOMEN: Soft, nontender, nondistended, positive bowel sounds. EXTREMITIES: No clubbing, cyanosis or edema. PSYCHIATRIC: Affect appeared appropriate. NEUROLOGIC: He is awake, alert and oriented x3. DIAGNOSTIC STUDIES: Chest x-ray is normal. His point of care troponin was described as abnormal in the ER, his lab troponin is normal. His TSH is 2.24. Sodium 135, potassium 3.1, BUN 14, creatinine 1.17. His coags are normal. His hemoglobin 16.6 with a platelet count of 160. EKG today - atrial fibrillation with a controlled ventricular response at 85 beats per minute, no acute ST-T changes. IMPRESSION: 1. Syncopal episode secondary to orthostatic hypotension. 2. Hyponatremia and hypokalemia secondary to hydrochlorothiazide. 3. History of hypertension. 4. New onset atrial fibrillation of undetermined duration, which appears to be asymptomatic with a CHADS2-VASc score including hypertension and given his known coronary disease a score of 2. As I discussed with Shailesh and his family in detail, his echocardiogram reveals normal biventricular size and function, there were no regional wall motion abnormalities, his ejection fraction is 65%, he does have moderate left atrial enlargement, likely secondary to longstanding hypertension. His syncopal episode sounds like it is all related to orthostatic symptoms. He had decreased oral intake yesterday, consumed alcohol last night and significant amount of caffeine, which are all diuretics. I made the following recommendations: 1. Stop his hydrochlorothiazide, which will improve his sodium and his potassium. 2. Replete his potassium. 3. Add Toprol-XL 25 mg at bedtime to control his heart rate. 4. Add apixaban 5 mg b.i.d. with close monitoring for any GI bleeding given his history and he should remain on pantoprazole. As I discussed with him if he is still in atrial fibrillation after 3 weeks of anticoagulation, we can consider cardioversion at that point to try to restore sinus rhythm. It appears he has not had any symptoms of atrial fibrillation over the last couple of weeks. 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 From my standpoint, he can be discharged home. All this was discussed in the family. Will arrange for a nurse visit in the office this week to check his heart rate and his blood pressure. Thank you for allowing us to participate in his care. Medication Reconciliation New Medications: Apixaban (Eliquis) 5 Mg Tab 5 MG PO BID for 30 Days, #60 TAB Metoprolol Succinate (Metoprolol Succinate ER) 25 Mg Tabcr 25 MG PO HS for 30 Days, #30 TAB 1 Refill Continued Medications: Amlodipine (Norvasc) 10 Mg Tab 10 MG PO DAILY Atorvastatin (Lipitor) 20 Mg Tab 20 MG PO DAILY Fluticasone Propionate (Nasal) (Allergy Nasal [place] 24 Ho) 50 Mcg/Act Spr 2 SPRAYS OMKAR DAILY Montelukast Sodium (Singulair) 10 Mg Tab 10 MG PO DAILY Pantoprazole (Protonix) 40 Mg Tab 40 MG PO DAILY Discontinued Medications: Hydrochlorothiazide (Hctz) 25 Mg Tab 25 MG PO DAILY Discharge Exam Review of Systems: Constitutional: No chills, No sweats Respiratory: No cough, No sputum Cardiovascular: No chest pain, No orthopnea Abdomen: No pain, No nausea Neurologic: No memory loss, No paralysis Psychiatric: No depression symptoms Hematologic / Lymphatic: No abnormal bleeding/bruising, No clotting problems Integumentary: No rash Physical Exam: General Appearance: WD/WN, no apparent distress Eyes: normal inspection ENT: normal ENT inspection Neck: supple, no adenopathy Respiratory/Chest: chest non-tender, lungs clear, normal breath sounds Cardiovascular: no murmur, normal peripheral pulses, + abnormal peripheral pulses Abdomen / GI: normal bowel sounds, non tender, soft Neurologic/Psychiatric: alert, oriented x 3 Skin: normal color Lymphatic: no adenopathy Hospital Course (1) New onset a-fib (2) Syncope (3) HTN (hypertension) (4) HLD (hyperlipidemia) (5) Gastrointestinal hemorrhage (6) Helicobacter pylori gastrointestinal tract infection (7) Hypokalemia HPI This is a 57 yo M with PMHx of Gi bleed secondary to duodenal ulcer with h.pylori infection, HTN, HLD, s/p cardiac cath in 2007 for possible NSTEMI, who presented this morning to the ER after syncopal episode. Pt woke up this morning and walked to the bathroom, at that point felt lightheaded while urinating, but then proceeded to washing his hands. At that point the patient felt more lightheaded and passed out. His was in the bedroom but did not witness the event. He denies hitting his head or sustaining any other major injuries. He woke up within seconds per . Pt reports he had a similar episode with passing out in 1997 when he was diagnosed with a GI bleed secondary to duodenal and jejunal ulcerations, at that time he saw Dr. Donaldson. He denies any abdominal pain, cramping, changes in diet, or changes in stool. He has had a routine colonoscopy within the past [address] Thompson. Last evening had two gin and tonics and reports also had several cups of coffee yesterday. He denies any other complaints at this time. Here in the ER the patient is found to be in new onset Afib which is rate controlled in the 90s. Potassium slightly low at 3.1 and was replaced. Hospital Course (2) Syncope Patient was admitted with New onset atrial fibrillation likely the cause of patients syncopal episode - Checking Echo Troponin was negative x 3 - Pt took morning antihypertensives including hctz 25 mg, norvasc 10 mg. -Cardio consulted, recommended tank terminal gauger anticoagulation. Patient will be started on Eliquis. -Discussed risks and benefits. - Was also started on metoprolol tartrate 12.5 mg BID for beta blockade - Pt was discharged as he was asymptomatic and rate controlled - BP stable since presenting to the ER HTN (hypertension) Assessment & Plan: - For now continue metoprolol and norvasc HLD (hyperlipidemia) Assessment & Plan: - Continue atorvastatin 20 mg daily Gastrointestinal hemorrhage Assessment & Plan: - Continue protonix - Caution with anticoagulation, but likely with new onset afib the benefit outweighs the risk - Resolved Helicobacter pylori gastrointestinal tract infection Assessment & Plan: - Resolved Hypokalemia Assessment & Plan: - resolved after being replaced. stopped HCTZ due to electrolyte imbalances as recommended by cardio Total Time Spent: Greater than 30 minutes This includes examination of the patient, discharge planning, medication reconciliation, and communication with other providers. Discharge Instructions Please refer to the electronic Patient Visit Report (Discharge Instructions) for additional information. Follow-Up F/U as per discharge instructions
== END 2017-08-05 15:45 | disposition home or self-care (01) | DRG 309 ==
LOC: C.EDB 06:25 → C.2E 08:51 → ENRESERV 09:01
PROVIDERS: ADMIT Internal Medicine Sports Medicine; ATTEND Internal Medicine Sports Medicine
DX: I48.91 Unspecified atrial fibrillation (principal); E87.1 Hypo-osmolality and hyponatremia; E87.6 Hypokalemia; R74.8 Abnormal levels of other serum enzymes; E86.0 Dehydration; I95.1 Orthostatic hypotension; I25.10 Atherosclerotic heart disease of native coronary artery without angina pectoris; I10 Essential (primary) hypertension; E78.5 Hyperlipidemia, unspecified; I25.2 Old myocardial infarction; Z87.19 Personal history of other diseases of the digestive system; Z79.899 Other long term (current) drug therapy

== ENCOUNTER → 2017-09-06 | Day surgery (SDC) | payer OTHER ==
[~2017-09-06] VITALS: Ht 175.3 cm; Wt 97.6 kg
[2017-09-06] VITALS (7 sets, daily range): BP systolic 91–133; BP diastolic 64–89; PULSE 48–83; TEMP 36.3; O2SAT 97–98; Ht 175.3 cm; Wt 97.6 kg
[~2017-09-06] MED LIST changes: +AMLO-114 PO; +APIX1TAB3 PO; -APIXABAN 2.5 MG TAB PO SCH; +ATOR-22 PO; -FEXO1TAB46 PO; +FLUT50SP45 NAE; +LIDOCAINE HCL 2% 2 ML VIAL (20MG/ML) ONE; -METOPROLOL SUCC 25MG EXT REL TAB PO SCH; +MONT1TAB3 PO; +MULT-599; +PANT40TA PO; +PROPOFOL IV EMULSION 10 MG/ML 20 ML VIAL IV ONE; +TPRSR25 PO
--- NOTE | 2017-09-06 07:48 | History & Physical Bridge Note ---
H&P Re-Evaluation Bridge Note: I have examined the patient, reviewed the History & Physical and in the interval since the performance of the History & Physical I have noted the following changes of clinical significance: No changes noted
--- NOTE | 2017-09-06 07:49 | Cardiology Procedure Brief Nt ---
Preliminary Cardiology Note Procedure Date Sep 06, 2017. Pre-Procedure Diagnosis Afib Post-Procedure Diagnosis Afib Procedure(s) Performed DC cardioversion sync mode 200 joules biphasic back to Sinus Bradycardia Bridge Worker Jermain Grades 1 Thru 6 Visiting Teacher(s) none Estimated Blood Loss none Medication(s) Propofol and lidocaine provided by anesthesia dept Preliminary Findings ! single shock back to SB Recommendations none Specimens none Complication(s) None Disposition
--- NOTE | 2017-09-06 07:52 | Discharge Instructions ---
Discharge Instructions Procedure Procedure Date: Sep 06, 2017. Reason for Visit: Afib Discharge Discharge Date: Sep 06, 2017. Discharge Diagnosis: Afib Last Recorded Wt (Kilograms): 97.59 Medications Stopped Medication(s): Decrease Toprol to 12.5 mg daily Anesthesia Post Anesthesia Instructions: If you have had IV Sedation: * Do not drive today. * Do not make important decisions or sign legal documents today. * Call for: 3. Excessive bleeding. 4. Persistent nausea and vomiting. 5. Medication intolerance (nausea, vomiting or rash). * For nausea and vomiting use only clear liquids such as: tea, soda, bouillon until nausea subsides, then gradually increase diet as tolerated. * If you have any concerns or questions, call your surgeon's office. If physician is unavailable and it is an emergency, call 911 or go to the nearest emergency room. Instructions Activity Recommendations: limitations Recommended Home Diet: no limitations Allergies: Coded Allergies: No Known Allergies (Verified , 08/05/17) Follow Up ACTIVITY RECOMMENDATIONS: * May resume driving tomorrow. SPECIAL CARE: * May apply burn ointment for skin irritation. * Please contact physician for any lightheadedness, dizziness or palpitations. * You have any unanswered questions or concerns. Your Doctors Instructions noted above were prepared by provider Maximiliano Aly. Patient Signature Section: Patient Instructions Signature Page Shailesh Bryant Patient (or Guardian) Signature/Date: I have read and understand the instructions given to me by my caregivers. Caregiver/RN/Doctor Signature/Date: The above-named patient and/or guardian has received patient instructions on this date. + Original Patient Signature Page (only) stays with chart. Please make copy for patient.
--- NOTE | 2017-09-06 08:09 | Anesthesiology Progress Note ---
Anesthesia Post Op Note Date & Time Sep 06, 2017 at 08:09 Vital Signs Pain Intensity: 0 Vital Signs Past 12 Hours Date Time Temp Pulse Resp B/P (MAP) Pulse Ox O2 Delivery O2 Flow Rate FiO2 09/06/17 07:54 56 16 94/61 (72) 98 Room Air 09/06/17 07:44 48 16 91/64 (73) 98 Room Air 09/06/17 07:44 48 16 91/64 98 Nasal Cannula 4 09/06/17 07:40 48 16 95/66 98 Nasal Cannula 4 09/06/17 07:38 50 16 133/89 98 Nasal Cannula 4 09/06/17 07:35 75 16 133/89 98 Nasal Cannula 4 09/06/17 07:09 36.3 83 16 115/89 (98) 98 Room Air Notes Mental Status: alert / awake / arousable, participated in evaluation Pt Amnestic to Procedure: Yes Nausea / Vomiting: adequately controlled Pain: adequately controlled Airway Patency, RR, SpO2: stable & adequate BP & HR: stable & adequate Hydration State: stable & adequate Anesthetic Complications: no major complications apparent
--- NOTE | 2017-09-06 08:24 | CARDIOVERSION ---
DATE OF OPERATION: 09/06/2017 CARDIOVERSION INDICATION FOR THE PROCEDURE: Atrial fibrillation. DESCRIPTION OF PROCEDURE: The patient was brought to the cardiac catheterization laboratory. He has been on apixaban 5 mg twice a day for greater than 3 weeks. After risks and benefits of the procedure were discussed in detail, the patient was sedated by the anesthesia department with lidocaine and propofol. Once adequately sedated, he was shocked once with a 200 joule biphasic shock in a sync mode with yarsani of sinus bradycardia. At the end of the procedure, he was answering all questions appropriately and moving his extremities. We will reduce his home Toprol dose from 25 mg a day to 12.5 mg a day and he will remain on apixaban. I attest to the content of the Intraoperative Record and any orders documented therein. Any exceptions are noted below. MTDD
== END | disposition home or self-care (01) ==
LOC: C.CATH 06:31
PROVIDERS: ATTEND Internal Medicine Cardiovascular Disease
DX: I48.91 Unspecified atrial fibrillation (principal); I25.10 Atherosclerotic heart disease of native coronary artery without angina pectoris; I10 Essential (primary) hypertension; G47.33 Obstructive sleep apnea (adult) (pediatric); Z98.84 Bariatric surgery status; Z98.890 Other specified postprocedural states; E78.5 Hyperlipidemia, unspecified